=== PATIENT | female | born 1940 | race Caucasian/White ===

== ENCOUNTER 2019-06-20 10:43 | Inpatient (IN) ==
[2019-06-20] MEDS ORDERED: 0.9 % SODIUM CHLORIDE 500 ML IV ONE (11:44)
--- NOTE | 2019-06-20 11:48 | Emergency Department Note ---
Fall HPI - General Chief Complaint: Fall Stated Complaint: Frequent falls Time Seen by Provider: 06/20/19 11:12 Source: patient, family Mode of arrival: wheelchair - History of Present Illness HPI Narrative: 79-year-old female patient presents the emergency department once again, this time with chief complaint of frequent falls and worsening left-sided pelvic pain. Patient tells me she was up this morning trying to let her dog back in the home when she tripped over a footstool. She landed on the carpeted floor on her left side. This caused worsening left hip pain. Patient was just evaluated in our emergency department yesterday by a colleague for generalized weakness, shortness of breath, and swallowing issues. She had considerable work-up done yesterday that included a CBC that was within normal limits. CMP that showed mildly decreased sodium 132 glucose 198. D-dimer is elevated 1.36. Lactic acid, troponin, and procalcitonin were all normal. Chest x-ray showed possible bibasilar infiltrates. Head CT scan was performed that showed no acute findings. A review of her note from yesterday does indicate that the patient is expressed a desire to go to a longterm for care. She mentions living at home alone and is not able to care for self. In the end of the visit she was diagnosed with UTI and was supposed to start treatment with ciprofloxacin. This was not started. Today, patient admits to occasional fever, sweats, chills. Patient admits to de creased vision in left eye and resulting in diplopia over the last 1-2 weeks. She denies headache. She denies sinus congestion or runny nose. She admits to ongoing dysphasia and is only able to take in milk related products. She admits to baseline shortness of breath that has not worsened. She denies retrosternal chest pain or palpitations. She denies abdominal pain, nausea, vomiting, or joya rrhea. She admits to generalized malaise but denies focal weakness. She denies dysuria or hematuria. A review of her active problems shows the following: Pelvic hematoma, achalasia, trouble talking, UTI, conjunctivitis, long-term use of opiate analgesic, type 2 diabetes, mitral regurgitation, pelvic fracture, influenza, osteoarthritis, overactive bladder, anxiety, osteoporosis, hypothyroidism, depression, back pain, allergic rhinitis. - Related Data Home Medications Medication Instructions Recorded Confirmed aspirin 81 mg tablet,delayed 81 mg PO QDAY tab 12/03/14 11/14/16 release beclomethasone diprop (AQ) 42 mcg 42 mcg INTRANASAL BID PRN g 12/03/14 11/14/16 (0.042 %) nasal spray calcium carbonate 200 mg calcium 400 mg PO QDAY tab 12/03/14 11/14/16 (500 mg) chewable tablet cholecalciferol (vitamin D3) 25 2,000 unit PO QDAY cap 12/03/14 11/14/16 mcg (1,000 unit) capsule conjugated estrogens 0.625 mg/gram 1 g VAGINAL QDAY PRN g 12/03/14 11/14/16 vaginal cream [id number]-ginctsze-jujmdk 1 tab PO QDAY tab 12/03/14 11/14/16 vitamin E 200 unit capsule 400 unit PO QDAY cap 12/03/14 11/14/16 metronidazole 500 mg tablet 500 mg PO TID 10 Days #30 tab 06/14/16 11/14/16 Previous Rx's Medication Instructions Recorded insulin syringe-needle U-100 0.3 See Dose Instructions .ROUTE 01/13/16 mL 30 gauge x 1/2" .MEDSUPPLY #300 each Prevnar 13 (PF) 0.5 mL 0.5 ml IM ONCE #0.5 ml NS 03/14/16 intramuscular syringe OneTouch Ultra Test See Dose Instructions .ROUTE 06/14/16 .MEDSUPPLY #300 each NS OneTouch Delica Lancets 33 gauge See Dose Instructions .ROUTE 07/09/16 .MEDSUPPLY #200 each NS calcitonin (salmon) 200 1 spray INTRANASAL QDAY #3.7 ml 07/24/16 unit/actuation nasal spray sertraline 100 mg tablet 100 mg PO QDAY 90 Days #90 tab 07/31/16 levothyroxine 200 mcg tablet 200 mcg PO QDAY 90 Days #90 tab 08/06/16 lorazepam 1 mg tablet See Rx Instructions .ROUTE 09/06/16 .COMPLEX #120 tab c-testosterone 20 mg/gm See Dose Instructions TRANSDERMA 09/19/16 .COMPLEX #30 g etodolac 400 mg tablet 400 mg PO BID #28 tab 11/14/16 Humalog U-100 Insulin 100 unit/mL See Dose Instructions .ROUTE 12/04/16 subcutaneous solution .COMPLEX #10 ml NS Lantus U-100 Insulin 100 unit/mL See Dose Instructions .ROUTE 12/04/16 subcutaneous solution .COMPLEX #10 ml NS fentanyl 50 mcg/hr transdermal 1 patch TRANSDERMA Q72H #10 patch 03/06/17 patch lisinopril 5 mg tablet 2.5 mg PO QDAY #30 tab 03/11/17 oxyCODONE HCL [Oxycodone HCl] 5 mg PO Q4HP PRN #18 tab 04/26/19 Ciprofloxacin [Cipro] 500 mg PO BID #14 tab 06/19/19 Allergies Allergy/AdvReac Type Severity Reaction Status Date / Time tramadol AdvReac Intermediate hypoglycemi Verified 06/20/19 10:44 a Review of Systems All systems ED: reviewed and negative except as stated. Fall PMH - Past Medical History Medical history: Reports: DM, osteoporosis, thyroid disease, valvular heart disease. Denies: PUD Psychiatric history: Reports: depression - Social History smoking status: Never smoker Physical Exam Limitations: no limitations General appearance: alert, in no apparent distress (No apparent respiratory distress.), malaise, sleepy, other (Well-developed, frail and chronically ill- appearing 79-year-old female patient sitting upright in the emergency room rney appearing sleepy but answering all my questions.) Head: atraumatic, normocephalic Eye: Present: normal appearance, PERRL, EOMI. Absent: scleral icterus, conjunctival injection, nystagmus ENT: Present: normal oropharynx, mucous membranes dry Neck: Present: normal inspection, full ROM, trachea midline. Absent: lymphadenopathy Chest: Present: normal inspection, symmetric chest wall rise. Absent: rash Respiratory: Present: decreased breath sounds (Decreased breath sounds at the bases bilateral). Absent: respiratory distress, rales/crackles, wheezes, stridor, accessory muscle use, prolonged expiratory phase Cardiovascular: Present: regular rate, normal rhythm. Absent: systolic murmur, diastolic murmur Abdominal: Present: soft. Absent: distention, tenderness, guarding, rebound, rigidity, organomegaly, mass Extremities: Present: normal inspection, full ROM, tenderness (Left hip.). Absent: normal capillary refill (Less than 3 seconds), pedal edema, cyanosis Neurological: Present: alert, oriented X3, reflexes normal. Absent: normal gait, motor sensory deficit Psychiatric: Present: normal affect, depressed Skin: Present: warm, dry, normal color Course Course Narrative: Patient was brought into the emergency department and a history and physical exam was performed. Patient is undergone extensive testing yesterday. I did repeat the chemistry panel, UA, and ordered images of her left hip/pelvis. pelvic x-ray showing a comminuted, minimally displaced fracture of the left p ubic symphysis and left pubic ramus junction. This is a worsening from a hairline fracture that was present. Portable chest x-ray showing moderate interstitial disease throughout both lungs. Radiologist mentions likely indicates viral or mycoplasma pneumonia. He does mention edema from possible CHF should also be considered. With this in mind additional laboratory studies were ordered. A review of her laboratory studies show the following: CBC within normal limits. CMP glucose 181, alkaline phosphatase 195, all others normal limits. proBNP 383.2. After reviewing all the data discussed these findings with the patient and her family. She has worsening fracture to his pelvis and developing interstitial lung disease. With this in mind, I reached out to the orthopedic surgeon on-call (Dr. Baeza) requesting guidance about the pelvic fracture. At this time orthopedic surgeon assured me that the fracture, at its current place, is not surgical. She should be able to move around and it will take time to heal. However, patient has not been ambulatory and is complaining of significant pain. Her fentanyl patch was removed and the patient was given Dilaudid 0.5 mg IVP. In attempt to control her pain and to stabilize her medically I reached out to the hospitalist (Dr. Lewis) for possible admission. After reviewing the patient's chart the hospitalist did mention that she does not meet considerable inpatient criteria. However, patient would likely warrant an observation admission for pain control and further evaluation. At this time [facility] All further treatment decisions and modalities will be carried out by the hospitalist. Patient is remained stable throughout her entire time the emergency department and is being admitted to observation as mentioned. Vital Signs Temperature 97.7 F 06/20/19 10:44 Pulse Rate 95 H 06/20/19 10:44 Respiratory Rate 15 06/20/19 10:44 Blood Pressure 129/81 06/20/19 10:44 Pulse Oximetry (%) 99 06/20/19 10:44 Temperature 97.7 F 06/20/19 10:44 Pulse Rate 85 06/20/19 15:02 Respiratory Rate 15 06/20/19 15:02 Blood Pressure 108/94 06/20/19 15:02 Pulse Oximetry (%) 95 06/20/19 15:02 Fall - Lab Data Lab results reviewed: Yes I reviewed the patient's lab results. Result diagrams: 06/20/19 12:10 06/20/19 12:10 Lab Results 06/20/19 06/20/19 06/20/19 Range/Units 12:10 12:10 12:10 WBC 5.9 (4.50-11.00) K/mcL RBC 4.29 (3.59-5.38) M/mcL Hgb 12.7 (11.2-15.7) g/dL Hct 39.8 (34.1-44.9) % POC Hct 39.0 (36.0-48.0) % MCV 92.8 (80.0-100.0) fL MCH 29.6 (26.0-34.0) pg MCHC 31.9 (31.0-36.0) g/dL RDW 12.9 (11.5-14.5) % Plt Count 253 (140-440) K/mcL MPV 10.6 H (7.4-10.4) fL Gran % 66.4 (38.0-78.0) % Lymph % (Auto) 22.7 (15.5-49.0) % [place] % (Auto) 9.7 (1.0-12.0) % Eos % (Auto) 0.7 (0.0-7.0) % Baso % (Auto) 0.5 (0.0-2.0) % Gran # 3.88 (1.80-8.00) K/mcL Lymph # (Auto) 1.33 L (1.50-4.80) K/mcL [place] # (Auto) 0.57 (0.10-0.90) K/mcL Eos # (Auto) 0.04 (0.00-0.70) K/mcL Baso # (Auto) 0.03 (0.00-0.30) K/mcL POC Sodium 137 (133-145) mmol/L Sodium 136 (133-145) mmol/L POC Potassium 4.0 (3.3-5.1) mmol/L Potassium 4.0 (3.3-5.1) mmol/L POC Chloride 103 (96-108) mmol/L Chloride 99 (96-108) mmol/L Carbon Dioxide 23 (22-30) mmol/L POC Total CO2 26 (22-30) mmol/L Anion Gap 14.0 (8-16) POC BUN 19 (8-23) mg/dl BUN 18 (8-23) mg/dl Creatinine 0.6 (0.6-1.1) mg/dl POC Creatinine 0.5 L (0.6-1.1) mg/dl GFR Calculation 87 Glucose 181 H (70-105) mg/dL POC Glucose 177 H (70-105) mg/dL Calcium 9.0 (8.6-10.4) mg/dl POC WB Ioniz Calcium 1.12 L (1.16-1.32) mmol/L Total Bilirubin 0.3 (0.0-1.0) mg/dL AST 23 (0-37) U/l ALT 20 (0-40) U/l Alkaline Phosphatase 195 H (39-117) U/L NT-Pro-B Natriuret Pep 383.2 (0-450) pg/ml Total Protein 7.1 (5.9-8.4) gm/dL Albumin 3.8 (3.2-5.2) gm/dL Globulin 3.3 (2.2-3.7) gm/dL Albumin/Globulin Ratio 1.2 (1.0-2.3) - Radiology Data Radiology results reviewed: Yes I reviewed the patient's radiology results. Ordering Physician: Brock Tavarez PA-C Date of Service: 06/20/19 Procedure(s): XR hips BI 2V w/AP pelvis Accession Number(s): [id number] IMPRESSION: Comminuted, minimally displaced fracture through the left pubic symphysis and left pubic ramus junction. There was a hairline fracture seen in this area on the plain films approximately two months prior but this has progressed. Ordering Physician: Brock Tavarez PA-C Date of Service: 06/20/19 Procedure(s): XR chest 1V portable Accession Number(s): [id number] IMPRESSION: Moderate interstitial disease throughout both lungs. Diffuse setting, this often indicates viral or mycoplasma pneumonia. Edema from possible CHF should also be considered Interpreted and Authenticated by: Naresh García 06/20/19 Disposition Pt seen by [facility]AN[facility] STRINGER/PA only: Yes Clinical Impression: Interstitial lung disease, Inadequate pain control, Adult failure to thrive Pelvic fracture Qualifiers: Encounter type: initial encounter Pelvic bone location: other part of pelvis Fracture type: closed Qualified Code(s): S32.89XA - Fracture of other parts of pelvis, initial encounter for closed fracture Disposition: Xfer As Outpt/Obs ([facility]) Condition: Serious Additional Instructions: Patient is going to be admitted under observation, under the care of the hospitalist (Dr. Lewis). All further treatment decisions and modalities to be carried out by the hospitalist. Referrals: Osbaldo Aguilar MD [Primary Care Provider] - Time of Disposition: 15:36
[2019-06-20 12:21] LABS: POC Blood Urea Nitrogen 19 mg/dl (8-23); POC CO2 26 mmol/L (22-30); POC Calcium, Ionized 1.12 mmol/L (1.16-1.32); POC Chloride 103 mmol/L (96-108); POC Creatinine 0.5 mg/dl (0.6-1.1); POC Glucose, Random 177 mg/dL (70-105); POC Sodium 137 mmol/L (133-145)
--- NOTE | 2019-06-20 12:51 | XRay Report ---
CLINICAL INFORMATION: 79 y/o F. weakness. bibasilar infiltrates seen COMPARISON: 06/19/2019 FINDINGS: Heart is mildly enlarged. Mediastinum and pulmonary vessels are normal. There is a mild interstitial disease throughout both lungs. No effusions IMPRESSION: Moderate interstitial disease throughout both lungs. Diffuse setting, this often indicates viral or mycoplasma pneumonia. Edema from possible CHF should also be considered Interpreted and Authenticated by: Naresh García 06/20/19
--- NOTE | 2019-06-20 12:53 | XRay Report ---
CLINICAL INFORMATION: 79 y/o F. Fell today. worsening left hip pain. COMPARISON: 04/26/2019 FINDINGS: Comminuted fracture through the left pubic symphysis extending to the left superior pubic ramus junction appreciated. No other fractures. Mild degenerative changes both SI and hip joints. Soft tissue swelling over the fracture site IMPRESSION: Comminuted, minimally displaced fracture through the left pubic symphysis and left pubic ramus junction. There was a hairline fracture seen in this area on the plain films approximately two months prior but this has progressed. Interpreted and Authenticated by: Naresh García 06/20/19
[2019-06-20] MEDS: HYDROmorphone 2 MG/ML VIAL IV ONE ×2 (13:40→14:16)
[2019-06-20 13:55] LABS: Basophils # (Auto) 0.03 K/mcL (0.00-0.30); Basophils % (Auto) 0.5 % (0.0-2.0); Eosinophils # (Auto) 0.04 K/mcL (0.00-0.70); Eosinophils % (Auto) 0.7 % (0.0-7.0); Granulocytes % (Auto) 66.4 % (38.0-78.0); Hematocrit 39.8 % (34.1-44.9); Hemoglobin 12.7 g/dL (11.2-15.7); Lymphocytes # (Auto) 1.33 K/mcL (1.50-4.80); Lymphocytes % (Auto) 22.7 % (15.5-49.0); Mean Cell Volume 92.8 fL (80.0-100.0); Mean Corpuscular HGB Conc 31.9 g/dL (31.0-36.0); Mean Platelet Volume 10.6 fL (7.4-10.4); Monocytes # (Auto) 0.57 K/mcL (0.10-0.90); Monocytes % (Auto) 9.7 % (1.0-12.0); Platelet Count 253 K/mcL (140-440); RBC 4.29 M/mcL (3.59-5.38); Red Cell Distribution Width 12.9 % (11.5-14.5); WBC 5.9 K/mcL (4.50-11.00)
[2019-06-20 14:03] LABS: proBNP 383.2 pg/ml (0-450)
[2019-06-20 14:05] LABS: ALT/SGPT 20 U/l (0-40); AST/SGOT 23 U/l (0-37); Albumin 3.8 gm/dL (3.2-5.2); Albumin/Globulin Ratio 1.2 (1.0-2.3); Alkaline Phosphatase 195 U/L (39-117); Bilirubin,Total 0.3 mg/dL (0.0-1.0); Blood Urea Nitrogen 18 mg/dl (8-23); Carbon Dioxide 23 mmol/L (22-30); Chloride 99 mmol/L (96-108); Globulin 3.3 gm/dL (2.2-3.7); Glomerular Filtration Rate 87; Glucose 181 mg/dL (70-105)
--- NOTE | 2019-06-20 15:07 | Internal Med History&Physical ---
Medical - H&P: HPI Patient information: Note initiated : 06/20/19 at 3:03 pm Service Date, if different from initiated Date: [] Patient: Elisha Alfaro 79 y/o F admitted on for Frequent falls. Chief Complaint: [] History of present illness: Ms. Alfaro is a 79 year old F Presents the ED with generalized weakness falling pelvic pain. Patient has been seen in the ED multiple times since being diagnosed with a pelvic fracture. 04/26 she presented with pelvic hip pain with no obvious trauma was found to have a hairline fracture of the left pubic ramus 05/06 presented back for some pain and noted had a hematoma at the fracture site 05/16 presented back for fall weakness and was found to have influenza 06/14 presented with swallowing difficulty and was evaluated for stroke which was negative work-up. Barium swallow which had some positive findings and she was scheduled to have a follow-up barium swallow with speech therapy this coming week. 06/19 presented for weakness swallowing issues and diagnosed with UTI Now presents today again because of weakness and she fell again this morning. She is does not feel safe at home family is concerned with her as well feel she needs to be in a rehab facility. She is afebrile laboratories unremarkable. This x-ray shows some interstitial findings, I suspect this to be related to probably a pneumonitis from aspiration, she has no respiratory symptoms otherwise and does not appear to have pneumonia. Regarding her swallowing she says is been going on for couple several weeks and the it is most noticeable solids she is mostly able to tolerate a liquid diet although occasionally will show cough up water through her nose. She tolerated a boost drink this morning and coffee. She also reports that she feels like food gets stuck in her throat after she initiates a swallow. She denies any pyrosis. She denies any coughing other than when she is having the coughing from swallowing food or when she is trying to clear her throat of phlegm. Chest pain fevers or chills, denying shortness of breath. Review of Systems: Pertinent positives as above. Denies heada tarah/fever/chills/nausea/vomiting/chest or abdominal pain/diarrhea. Many 10 point review of system reviewed negative Medical - H&P: PM Medical history: Medical History (Last Updated 04/29/19 @ 00:00 by Pierre Pfeiffer DO) Long-term current use of opiate analgesic (Chronic) Type 2 diabetes mellitus (Chronic) Mitral regurgitation (Chronic) Osteoarthritis (Chronic) Overactive bladder (Chronic) Aortic valve insufficiency (Chronic) Urinary Incontinence (Chronic) Anxiety (Chronic) Osteoporosis (Chronic) Hypothyroid (Chronic) Depression (Chronic) Back pain with radiation (Chronic) Aortic valve insufficiency (Chronic) Allergic rhinitis (Chronic) Chest pain (Resolved) Clostridium difficile infection (Resolved) Dysuria (Resolved) E-coli UTI (Resolved) Encounter for Health Maintenance Examination in Adult (Resolved) Localized pain (Resolved) Postmenopausal bleeding (Resolved) Rupture of tendon of thumb (Resolved) Scarlet fever (Resolved) Shingles (Resolved) Skin lesion (Resolved) Urge incontinence of urine (Resolved) Urinary tract infection (Resolved) Past Surgical History (Last Updated 04/27/19 @ 08:03 by Pierre Pfeiffer DO) H/O dilation and curettage (Chronic) Hx of colonoscopy (Chronic 07/12/09) S/P epidural steroid injection (Resolved) Family History (Last Updated 04/20/19 @ 14:17 by Jessi Puente) Brother Family history of coronary artery bypass surgery Status post heart and lung transplant Heart disease Mother Family history of malignant neoplasm of esophagus Throat cancer uncle Pancreatic neoplasm Father Hypertension Social History (Last Updated 04/20/19 @ 14:17 by Jessi Puente) Denies tobacco Drinks 1 glass of wine a night Ambulates with walker Lives by herself Medical - H&P: Meds Home Medications Medication Instructions Recorded Confirmed Type aspirin 81 mg tablet,delayed 81 mg PO QDAY tab 12/03/14 11/14/16 History release beclomethasone diprop (AQ) 42 mcg 42 mcg INTRANASAL BID PRN g 12/03/14 11/14/16 History (0.042 %) nasal spray calcium carbonate 200 mg calcium 400 mg PO QDAY tab 12/03/14 11/14/16 History (500 mg) chewable tablet cholecalciferol (vitamin D3) 25 2,000 unit PO QDAY cap 12/03/14 11/14/16 History mcg (1,000 unit) capsule conjugated estrogens 0.625 mg/gram 1 g VAGINAL QDAY PRN g 12/03/14 11/14/16 H istory vaginal cream lfqnnoqjxegl-zdiocpja-nheewg 1 tab PO QDAY tab 12/03/14 11/14/16 History vitamin E 200 unit capsule 400 unit PO QDAY cap 12/03/14 11/14/16 History insulin syringe-needle U-100 0.3 See Dose Instructions .ROUTE 01/13/16 11/14/16 Rx mL 30 gauge x 1/2" .MEDSUPPLY #300 each Prevnar 13 (PF) 0.5 mL 0.5 ml IM ONCE #0.5 ml NS 03/14/16 11/14/16 Rx intramuscular syringe OneTouch Ultra Test See Dose Instructions .ROUTE 06/14/16 11/14/16 Rx .MEDSUPPLY #300 each NS metronidazole 500 mg tablet 500 mg PO TID 10 Days #30 tab 06/14/16 11/14/16 History OneTouch Delica Lancets 33 gauge See Dose Instructions .ROUTE 07/09/16 11/14/16 Rx .MEDSUPPLY #200 each NS calcitonin (salmon) 200 1 spray INTRANASAL QDAY #3.7 ml 07/24/16 11/14/16 Rx unit/actuation nasal spray sertraline 100 mg tablet 100 mg PO QDAY 90 Days #90 tab 07/31/16 11/14/16 Rx levothyroxine 200 mcg tablet 200 mcg PO QDAY 90 Days #90 tab 08/06/16 11/14/16 Rx lorazepam 1 mg tablet See Rx Instructions .ROUTE 09/06/16 11/14/16 Rx .COMPLEX #120 tab c-testosterone 20 mg/gm See Dose Instructions TRANSDERMA 09/19/16 11/14/16 Rx .COMPLEX #30 g etodolac 400 mg tablet 400 mg PO BID #28 tab 11/14/16 11/14/16 Rx Humalog U-100 Insulin 100 unit/mL See Dose Instructions .ROUTE 12/04/16 Rx subcutaneous solution .COMPLEX #10 ml NS Lantus U-100 Insulin 100 unit/mL See Dose Instructions .ROUTE 12/04/16 Rx subcutaneous solution .COMPLEX #10 ml NS fentanyl 50 mcg/hr transdermal 1 patch TRANSDERMA Q72H #10 patch 03/06/17 Rx patch lisinopril 5 mg tablet 2.5 mg PO QDAY #30 tab 03/11/17 Rx oxyCODONE HCL [Oxycodone HCl] 5 mg PO Q4HP PRN #18 tab 04/26/19 Rx Ciprofloxacin [Cipro] 500 mg PO BID #14 tab 06/19/19 Rx Allergies Allergy/AdvReac Type Severity Reaction Status Date / Time tramadol AdvReac Intermediate hypoglycemi Verified 06/20/19 10:44 a Medical - H&P: Exam - Constitutional Vitals: Temp Pulse Resp BP Pulse Ox 97.7 F 89 18 133/73 95 06/20/19 10:44 06/20/19 14:05 06/20/19 14:05 06/20/19 14:05 06/20/19 14:05 Exam: General: Alert, Awake, No acute Distress Eyes/N/T: EOMI, PERRL, right eyelid droopy Head/Neck: neck supple, normocephalic atraumatic CV: RRR, No murmurs, normal s1/s2 Pulm: Clear b/l, no wheezing/rhonchi/rales Abd: soft, nontender, +BS x4 Ext: no clubbing/cyanosis/edema Neuro: Alert, moves all extremities, symmetrical strength b/l upper/lower, sensations intact b/l upper/lower Skin: warm/dry Medical - H&P: Reslt - Labs CBC & Chem 7: 06/20/19 12:10 06/20/19 12:10 Labs: Short CBC 06/20/19 Range/Units 12:10 WBC 5.9 (4.50-11.00) K/mcL Hgb 12.7 (11.2-15.7) g/dL Hct 39.8 (34.1-44.9) % Plt Count 253 (140-440) K/mcL BMP 06/20/19 12:10 Sodium 136 Potassium 4.0 Chloride 99 Carbon Dioxide 23 BUN 18 Creatinine 0.6 Glucose 181 H Calcium 9.0 Liver Function 06/20/19 Range/Units 12:10 Total Bilirubin 0.3 (0.0-1.0) mg/dL AST 23 (0-37) U/l ALT 20 (0-40) U/l Alkaline Phosphatase 195 H (39-117) U/L Albumin 3.8 (3.2-5.2) gm/dL Medical - H&P: A/P - Narrative A/P Narrative: A: *Generalized weakness/falls/debility: *Recent pelvic fracture: *Dysphagia: Solids more than liquids, reports symptoms consistent with both oral pharyngeal and esophageal *UTI recent diagnosis: *Suspected pneumonitis from likely aspiration given CXR findings and history: *DM: *HTN: *Anxiety/depression: *Hypothyroidism: * P: -Pt/ot -prn pain control -liquid diet -ST for barium swallow -f/u with PCP/GI regarding continued w/u of dysphagia -ppi -rocephin -SSI and basal -cont home BP/Anxiety meds -ppx: lovenox DNR
[2019-06-20] MEDS ORDERED: SENNOSIDES 1 TABLET PO PRN (15:25)
[2019-06-20] MEDS ORDERED: ONDANSETRON 4 MG/2 ML VIAL IV PRN (15:25)
[2019-06-20] MEDS ORDERED: POLYETHYLENE GLYCOL 3350 17 GM PACKET PO PRN (15:25)
[2019-06-20] MEDS ORDERED: HYDROcodone/APAP 5/325MG TABLET PO PRN (15:25)
[2019-06-20] MEDS ORDERED: MAGNESIUM SULFATE 2 GM/50 ML BAG IV PRN (15:25)
[2019-06-20] MEDS ORDERED: POTASSIUM CHLORIDE 40 MEQ in DEXTROSE 5% IN WATER 500 ML IV PRN (15:25)
[2019-06-20] MEDS ORDERED: DEXTROSE 31 GM ORAL.SUSP PO PRN (15:25)
[2019-06-20] MEDS ORDERED: POTASSIUM CHLORIDE 20 MEQ TABLET PO PRN ×2 (15:25)
[2019-06-20] MEDS ORDERED: IPRATROPIUM/ALBUTEROL 3 ML AMPUL.NEB NEB PRN (15:25)
[2019-06-20] MEDS ORDERED: cefTRIAXone 1 GM in DEXTROSE 5% IN WATER 50 ML IV SCH (15:25)
[2019-06-20] MEDS ORDERED: DEXTROSE 50% 50 ML VIAL IV PRN (15:25)
[2019-06-20] MEDS: 0.9 % SODIUM CHLORIDE 1,000 ML IV SCH (16:48)
[2019-06-20] MEDS: cefTRIAXone 1 GM VIAL IV SCH (17:13)
[2019-06-20] MEDS ORDERED: INSULIN GLARGINE, HUMAN 1 UNIT/0.01 ML SQ SCH (17:15)
[2019-06-20] MEDS ORDERED: LORazepam (PP) 1 MG TABLET (#4) PO SCH (17:15)
[2019-06-20] MEDS: INSULIN LISPRO 1 UNIT/0.01 ML UNIT SQ SCH ×2 (17:15→22:22)
[2019-06-20 18:22] LABS: Appearance,Urine CLEAR; Bilirubin,Urine NEG (NEG); Color,Urine YELLOW; Culture Indicated,Urine NO; Glucose,Urine (UA) NEGATIVE (NEG); Ketones,Urine 5/TR mg/dL (NEG); Leukocyte Esterase,Urine NEG /uL (NEG); Nitrate,Urine NEG (NEG); Protein,Urine NEG (NEG); Specific Gravity,Urine 1.015 (1.000-1.035); Urine Blood NEG mg/dL (<0.03); Urobilinogen,Urine NEG (NEG)
[2019-06-20] MEDS ORDERED: ENALAPRILAT 1.25 MG/ML VIAL IV PRN (20:08)
[2019-06-20] MEDS ORDERED: LORazepam 1 MG TABLET PO PRN (21:00)
[2019-06-20] MEDS ORDERED: DOCUSATE SODIUM 100 MG CAPSULE PO SCH (21:00)
[2019-06-20] MEDS: 0.9 % SODIUM CHLORIDE 10 ML SYRINGE IV SCH (22:22)
[2019-06-20] MEDS: ACETAMINOPHEN 650 MG/65 ML BOTTLE IV PRN (23:23)
[2019-06-21] MEDS: 0.9 % SODIUM CHLORIDE 1,000 ML IV SCH ×3 (05:53→10:03)
[2019-06-21] MEDS: 0.9 % SODIUM CHLORIDE 10 ML SYRINGE IV SCH ×3 (05:53→21:38)
[2019-06-21] MEDS: PANTOPRAZOLE 40 MG VIAL IV SCH (07:36)
--- NOTE | 2019-06-21 07:55 | Cat Scan Report ---
CLINICAL INFORMATION: Aspiration COMPARISON: Chest CT 12/21/2011 TECHNIQUE: 0.625 mm axial slices were obtained from the lung apices through the bases without intravenous contrast. 2.5 mm Sagittal, coronal and axial reformatted images were processed and reviewed at bone, lung and soft tissue windows. 7 mm axial MIP images were also reconstructed to optimize pulmonary nodule detection.The exam was performed using radiation dose optimization techniques including, but not limited to, automated exposure control, adjustment of the mA and/or kV according to patient size and use of iterative reconstruction technique. FINDINGS: Pulmonary parenchymal windows again show a focus of pleural parenchymal fibrosis with entrapped dilated subsegmental bronchi in the posterior left lung apex. It is increased in overall dimension from 16 to 19 mm since the remote study over seven years ago. Suspect a region of cicitration atelectasis which has undergone progressive fibrosis and/or superimposed infection. It does not have the configuration of malignancy. A 9 mm density in the posterior right lung apex on image 35 appears to represent inflammation or fibrosis surrounding a a dilated subsegmental bronchi segment. There is moderate patchy groundglass airspace disease in the inferior right middle and both lower lobes which is new. There is also moderate aspirate noted within the lumen of the right lower and middle lobe bronchi thus airspace disease likely represents aspiration pneumonia. A band of pleural parenchymal fibrosis has developed along the posterior medial right lower lobe. This was not seen on the remote study. A small right pleural effusion is noted Mediastinal windows show a feeding tube with the tip in the gastric body. The heart is borderline enlarged with small amount of calcific plaque within the left main and proximal LAD coronary arteries. The noncontrast thoracic aorta and pulmonary arteries are normal diameter. There are no abnormally enlarged lymph nodes in mediastinal hilar or axillary regions. Thyroid is grossly normal. Bone windows show severe dextroscoliosis curve of the lower thoracic and upper lumbar spine which has worsened considerably from 2012. No focal osseous lesions. IMPRESSION: 1. Moderate patchy groundglass infiltrates in the inferior right middle and both lower lobes. There is aspirate noted within the right lower lobe and right middle lobe bronchi lumen. Findings compatible with aspiration pneumonia. Small right pleural effusion is noted. There is also a band of subpleural fibrosis in the posterior medial right lower lobe region. 2. 19 mm focus of cicitration bronchiectasis and fibrosis in the posterior left lung apex. It is slightly larger than the remote study seven years prior suspect either progressing fibrosis or superimposed pneumonia. 3. Severe dextroscoliosis of lower thoracic and upper lumbar spine which has worsened considerably since the remote CT seven years ago Interpreted and Authenticated by: Naresh García 06/21/19
--- NOTE | 2019-06-21 08:19 | Internal Med Progress Note ---
Medical - PN: Subj Patient information: Note initiated : 06/21/19 at 8:13 am Service Date, if different from initiated Date: [] Patient: Elisha Alfaro 79 y/o F admitted on 06/20/19 for Frequent falls. Chief Complaint: [] Interval history: Ms. Alfaro is a 79 year old F Presents the ED with generalized weakness falling pelvic pain. Patient has been seen in the ED multiple times since being diagnosed with a pelvic fracture. 04/26 she presented with pelvic hip pain with no obvious trauma was found to have a hairline fracture of the left pubic ramus 05/06 presented back for some pain and noted had a hematoma at the fracture site 05/16 presented back for fall weakness and was found to have influenza 06/14 presented with swallowing difficulty and was evaluated for stroke which was negative work-up. Barium swallow which had some positive findings and she was scheduled to have a follow-up barium swallow with speech therapy this coming week. 06/19 presented for weakness swallowing issues and diagnosed with UTI Now presents today again because of weakness and she fell again this morning. She is does not feel safe at home family is concerned with her as well feel she needs to be in a rehab facility. She is afebrile laboratories unremarkable. This x-ray shows some interstitial findings, I suspect this to be related to probably a pneumonitis from aspiration, she has no respiratory symptoms otherwise and does not appear to have pneumonia. Regarding her swallowing she says is been going on for couple several weeks and the it is most noticeable solids she is mostly able to tolerate a liquid diet although occasionally will show cough up water through her nose. She tolerated a boost drink this morning and coffee. She also reports that she feels like food gets stuck in her throat after she initiates a swallow. She denies any pyrosis. She denies any coughing other than when she is having the coughing from swallowing food or when she is trying to clear her throat of phlegm. Chest pain fevers or chills, denying shortness of breath. 06/21 Seemed to have some aspiration with the number of pills last night and seemed more hoarse after the event better this morning. NG tube last night. Do bedsid e swallow eval and see how she does with mildly thickened liquids as she was doing well with nutritional shakes before. Speech therapy to see tomorrow. She has a weak cough and an occasional cough mostly to try to cough up phlegm. She has some shortness of breath that is improved from yesterday. Review of Systems: denies headache/fever/chills/nausea/vomiting/chest or abdominal pain/diarrhea. Otherwise see above. - Constitutional Vitals: Vital Signs Temp Pulse Resp BP Pulse Ox 98.1 F 77 18 121/64 97 06/21/19 08:00 06/21/19 08:00 06/21/19 08:00 06/21/19 08:00 06/21/19 08:00 Period Temp Pulse Resp BP Sys/Schumacher Pulse Ox Last 24 Hr 97.7 F-98.9 F 75-102 13-22 105-161/62-94 92-99 Intake and Output 06/20/19 06/21/19 06/21/19 21:59 05:59 13:59 Intake Total 0 305 Output Total 452 302 Balance -452 3 Weight 48.081 kg Intake & Output: Intake & Output 06/20/19 06/21/19 06/21/19 21:59 05:59 13:59 Intake Total 0 305 Output Total 452 302 Balance -452 3 Weight 48.081 kg Intake: IV 65 Oral 0 240 Output: Void Amount 450 300 # of times incontinent of urine 2 2 Other: Urine Appearance Clear Clear Urine Color Bright Yellow Bright Yellow Urine Odor Foul Stool Size Moderate Stool Color Brown Stool Consistency Loose # Bowel Movements 1 Exam: General: Alert, Awake, No acute Distress Eyes/N/T: EOMI, Head/Neck: neck supple, CV: RRR, No murmurs, Pulm: diminished bases R>L, no wheezing/rhonchi/rales Abd: soft, nontender, +BS x4 Ext: no clubbing/cyanosis/edema Neuro: Alert, moves all extremities, symmetrical strength b/l upper/lower, sensations intact b/l upper/lower Skin: warm/dry Medical - PN: Obj Da - Labs CBC & Chem 7: 06/20/19 12:10 06/20/19 12:10 Labs: Abnormal Lab Results 06/20/19 06/20/19 06/20/19 17:32 12:10 12:10 MPV 10.6 H Lymph # (Auto) 1.33 L POC Creatinine Glucose 181 H POC Glucose POC WB Ioniz Calcium Alkaline Phosphatase 195 H Urine Ketones 5/tr A 06/20/19 12:10 MPV Lymph # (Auto) POC Creatinine 0.5 L Glucose POC Glucose 177 H POC WB Ioniz Calcium 1.12 L Alkaline Phosphatase Urine Ketones Meds: Medications Albuterol/Ipratropium (Duoneb) 3 ml NEB Q4HP PRN PRN Reason: Shortness Of Breath Last Admin: 06/21/19 03:21 Dose: 3 ml Documented by: Aspirin (Aspirin) 81 mg PO DAILY [facility] Ceftriaxone Sodium (Rocephin) 1 gm IV DAILY [facility] Last Admin: 06/20/19 17:13 Dose: 1 gm Documented by: Dextrose (Dextrose 50%) 0 ml IV UD PRN PRN Reason: Hypoglycemia Diagnostic Test (Pha) (Accu-Chek) 1 each FS ACHS [facility] Last Admin: 06/21/19 07:36 Dose: 1 each Documented by: Enalaprilat (Vasotec) 0 mg IV Q2HP PRN PRN Reason: Hypertension Enoxaparin Sodium (Lovenox) 30 mg SQ DAILY [facility] Glucose (Insta-Glucose) 15 gm PO PRN PRN PRN Reason: Hypoglycemia Potassium Chloride 40 meq/ (Dextrose) 520 mls @ 130 mls/hr IV UD PRN PRN Reason: Potassium < 3 Magnesium Sulfate (Magnesium Sulfate) 2 gm in 50 mls @ 50 mls/hr IV UD PRN PRN Reason: Magnesium </= 1.6 Sodium Chloride (Sodium Chloride 0.9%) 1,000 mls @ 75 mls/hr IV .[id number] [facility] Last Admin: 06/21/19 05:53 Dose: Not Given Documented by: Acetaminophen (Ofirmev) 650 mg in 65 mls @ 130 mls/hr IV Q6HP PRN; Protocol PRN Reason: PAIN/FEVER > 101 Last Infusion: 06/21/19 00:14 Dose: Infused Documented by: Insulin Glargine (Lantus) 5 unit SQ DAILY [facility] Insulin Human Lispro (Humalog) 0 unit SQ ACHS [facility]; Protocol Last Admin: 06/20/19 22:22 Dose: Not Given Documented by: Levothyroxine Sodium (Synthroid) 200 mcg PO ACB [facility] Lorazepam (Ativan) 0.5 mg IV BIDP PRN PRN Reason: ANXIETY/SEDATION Morphine Sulfate (Morphine) 0 mg IV Q3HP PRN PRN Reason: Pain Last Admin: 06/21/19 03:38 Dose: 1 mg Documented by: Ondansetron HCl (Zofran) 4 mg IV Q4HP PRN PRN Reason: Nausea And Vomiting Pantoprazole Sodium (Protonix) 40 mg IV QAMAC [facility] Last Admin: 06/21/19 07:36 Dose: 40 mg Documented by: Polyethylene Glycol (Miralax) 17 gm PO DAILYP PRN PRN Reason: Constipation Sertraline HCl (Zoloft) 100 mg PO QDAY [facility] Sodium Chloride (Saline Flush) 10 ml IV Q8 [facility] Last Admin: 06/21/19 05:53 Dose: Not Given Documented by: Medical - PN: A/P - Time Spent With Patient Total time spent is greater than 50% in coordination of care (as documented) at patient's floor/unit and/or counseling patient: - Narrative A/P Narrative: A: *Generalized weakness/falls/debility: *Recent pelvic fracture: on 04/26 and likely reinjured it with the fall [employer]. *Dysphagia: -Barium swallow from [facility] (06/16/2019) reveals normal esophagus and her dysphagia was felt to be more oropharyngeal with swallow initiation, there was concern potential aspiration. Recommendation was for modified swallow eval with ST. *Aspiration w/pneumonitis vs developing PNA: *UTI recent diagnosis: repeat UA unremarkable, *DM: *HTN: *Anxiety/depression: *Hypothyroidism: * P: -IVF's -Pt/ot -bedside swallow urvashi -ST for modified barium swallow -f/u with PCP/GI regarding continued w/u of dysphagia -ppi -empiric abx for Aspiration, concern for PNA -SSI and basal -cont home BP/Anxiety meds -ppx: lovenox DNR Medical - PN: Qual - Stroke Symptom Onset Unknown: No - VTE Deep Vein Thrombosis/Pulmonary Embolism Present on Admission: No
[2019-06-21] MEDS: INSULIN LISPRO 1 UNIT/0.01 ML UNIT SQ SCH ×4 (08:34→22:00)
[2019-06-21] MEDS: cefTRIAXone 1 GM VIAL IV SCH (08:35)
[2019-06-21] MEDS: ENOXAPARIN 30 MG/0.3 ML SYRINGE SQ SCH (08:35)
[2019-06-21] MEDS ORDERED: 0.9 % SODIUM CHLORIDE 1,000 ML IV SCH (08:45)
[2019-06-21] MEDS ORDERED: INSULIN GLARGINE, HUMAN 1 UNIT/0.01 ML SQ SCH ×2 (09:00)
[2019-06-21] MEDS ORDERED: LISINOPRIL 5 MG TABLET PO SCH (09:00)
[2019-06-21] MEDS ORDERED: cefTRIAXone 1 GM VIAL IV ONE (09:46)
[2019-06-21] MEDS: ASPIRIN 81 MG TAB.CHEW PO SCH ×2 (09:51→10:02)
[2019-06-21] MEDS: LEVOTHYROXINE 100 MCG TABLET PO SCH (09:51)
[2019-06-21] MEDS: SERTRALINE 100 MG TABLET PO SCH (09:51)
[2019-06-21] MEDS: ACETAMINOPHEN 650 MG/65 ML BOTTLE IV PRN (09:57)
[2019-06-21 10:41] LABS: Basophils # (Auto) 0.02 K/mcL (0.00-0.30); Basophils % (Auto) 0.2 % (0.0-2.0); Eosinophils # (Auto) 0 K/mcL (0.00-0.70); Eosinophils % (Auto) 0 % (0.0-7.0); Granulocytes % (Auto) 88.1 % (38.0-78.0); Hematocrit 42.6 % (34.1-44.9); Hemoglobin 13.9 g/dL (11.2-15.7); Lymphocytes % (Auto) 7.1 % (15.5-49.0); Mean Cell Volume 91.2 fL (80.0-100.0); Mean Corpuscular HGB Conc 32.6 g/dL (31.0-36.0); Mean Platelet Volume 10.4 fL (7.4-10.4); Monocytes # (Auto) 0.58 K/mcL (0.10-0.90); Monocytes % (Auto) 4.6 % (1.0-12.0); Platelet Count 270 K/mcL (140-440); RBC 4.67 M/mcL (3.59-5.38); Red Cell Distribution Width 12.9 % (11.5-14.5); WBC 12.7 K/mcL (4.50-11.00)
[2019-06-21 10:58] LABS: ALT/SGPT 30 U/l (0-40); AST/SGOT 34 U/l (0-37); Albumin 3.8 gm/dL (3.2-5.2); Albumin/Globulin Ratio 1.1 (1.0-2.3); Alkaline Phosphatase 201 U/L (39-117); Bilirubin,Direct < 0.2 mg/dL (0.0-0.3); Bilirubin,Total 0.3 mg/dL (0.0-1.0); Blood Urea Nitrogen 11 mg/dl (8-23); Calcium 9.1 mg/dl (8.6-10.4); Carbon Dioxide 22 mmol/L (22-30); Chloride 98 mmol/L (96-108); Globulin 3.4 gm/dL (2.2-3.7); Glomerular Filtration Rate 87; Glucose 158 mg/dL (70-105); Lactate Dehydrogenase 235 U/L (94-250); Phosphorous 2.8 mg/dL (2.7-4.5); Triglycerides 52 mg/dl (<150); Uric Acid 2.1 mg/dL (2.5-8.0)
[2019-06-21] MEDS: LORazepam 2 MG/ML VIAL IV PRN ×2 (11:09→20:19)
[2019-06-21] MEDS: MELATONIN 3 MG TABLET PO SCH (21:51)
[2019-06-22] MEDS: 0.9 % SODIUM CHLORIDE 10 ML SYRINGE IV SCH ×3 (04:41→23:53)
--- NOTE | 2019-06-22 07:20 | Internal Med Progress Note ---
Medical - PN: Subj Patient information: Note initiated : 06/22/19 at 7:16 am Service Date, if different from initiated Date: [] Patient: Elisha Alfaro 79 y/o F admitted on 06/20/19 for Frequent falls. Chief Complaint: [] Interval history: Ms. Alfaro is a 79 year old F Presents the ED with generalized weakness falling pelvic pain. Patient has been seen in the ED multiple times since being diagnosed with a pelvic fracture. 04/26 she presented with pelvic hip pain with no obvious trauma was found to have a hairline fracture of the left pubic ramus 05/06 presented back for some pain and noted had a hematoma at the fracture site 05/16 presented back for fall weakness and was found to have influenza 06/14 presented with swallowing difficulty and was evaluated for stroke which was negative work-up. Barium swallow which had some positive findings and she was scheduled to have a follow-up barium swallow with speech therapy this coming week. 06/19 presented for weakness swallowing issues and diagnosed with UTI Now presents today again because of weakness and she fell again this morning. She is does not feel safe at home family is concerned with her as well feel she needs to be in a rehab facility. She is afebrile laboratories unremarkable. This x-ray shows some interstitial findings, I suspect this to be related to probably a pneumonitis from aspiration, she has no respiratory symptoms otherwise and does not appear to have pneumonia. Regarding her swallowing she says is been going on for couple several weeks and the it is most noticeable solids she is mostly able to tolerate a liquid diet although occasionally will show cough up water through her nose. She tolerated a boost drink this morning and coffee. She also reports that she feels like food gets stuck in her throat after she initiates a swallow. She denies any pyrosis. She denies any coughing other than when she is having the coughing from swallowing food or when she is trying to clear her throat of phlegm. Chest pain fevers or chills, denying shortness of breath. 06/21 Seemed to have some aspiration with the number of pills last night and seemed more hoarse after the event better this morning. NG tube last night. Do bedsid e swallow eval and see how she does with mildly thickened liquids as she was doing well with nutritional shakes before. Speech therapy to see tomorrow. She has a weak cough and an occasional cough mostly to try to cough up phlegm. She has some shortness of breath that is improved from yesterday. 06/22 To go to sleep last night. Little anxious. Was just given her home benzodiazepine. Speech therapy evaluation today. Mild left groin pain where the pelvic fracture is. Review of Systems: denies headache/fever/chills/nausea/vomiting/chest or abdominal pain/diarrhea. Otherwise see above. - Constitutional Vitals: Vital Signs Temp Pulse Resp BP Pulse Ox 98.8 F 99 H 16 156/86 93 06/22/19 03:47 06/22/19 03:47 06/22/19 03:47 06/22/19 03:47 06/22/19 03:47 Period Temp Pulse Resp BP Sys/Schumacher Pulse Ox Last 24 Hr 97.9 F-98.9 F 77-105 - 110-156/64-96 93-98 Intake and Output 06/21/19 06/22/19 06/22/19 21:59 05:59 13:59 Intake Total 220 1050 Output Total 101 101 Balance 119 949 Weight 47.627 kg Intake & Output: Intake & Output 06/21/19 06/22/19 06/22/19 21:59 05:59 13:59 Intake Total 220 1050 Output Total 101 101 Balance 119 949 Weight 47.627 kg Intake: IV 1000 Sodium Chloride 0.9% 1,000 ml @ 1000 50 mls/hr IV .Q20H [facility] Rx#: [id number] Oral 220 50 Tube Feeding 0 Output: Void Amount 100 100 # of times incontinent of urine 1 1 Other: Meal Dinner Percent of Meal Consumed 10% Feeding Ability Assist with Tray Set Up Urine Appearance Clear Urine Color Dark Yellow Stool Size Small Stool Color Green Stool Consistency Liquid Loose Exam: General: Alert, Awake, No acute Distress Eyes/N/T: EOMI, Head/Neck: neck supple, CV: RRR, No murmurs, Pulm: diminished bases R>L, no wheezing/rhonchi/rales Abd: soft, nontender, +BS x4 Ext: no clubbing/cyanosis/edema Neuro: Alert, moves all extremities, symmetrical strength b/l upper/lower, sensations intact b/l upper/lower Skin: warm/dry Medical - PN: Obj Da - Labs CBC & Chem 7: 06/21/19 09:58 06/21/19 09:58 Labs: Abnormal Lab Results 06/21/19 06/21/19 06/20/19 09:58 09:58 17:32 WBC 12.7 H MPV Gran % 88.1 H Lymph % (Auto) 7.1 L Gran # 11.15 H Lymph # (Auto) 0.90 L POC Creatinine Glucose 158 H POC Glucose Uric Acid 2.1 L POC WB Ioniz Calcium Alkaline Phosphatase 201 H Urine Ketones 5/tr A 06/20/19 06/20/19 06/20/19 12:10 12:10 12:10 WBC MPV 10.6 H Gran % Lymph % (Auto) Gran # Lymph # (Auto) 1.33 L POC Creatinine 0.5 L Glucose 181 H POC Glucose 177 H Uric Acid POC WB Ioniz Calcium 1.12 L Alkaline Phosphatase 195 H Urine Ketones Meds: Medications Albuterol/Ipratropium (Duoneb) 3 ml NEB Q4HP PRN PRN Reason: Shortness Of Breath Last Admin: 06/21/19 03:21 Dose: 3 ml Documented by: Aspirin (Aspirin) 81 mg PO DAILY [facility] Last Admin: 06/21/19 10:02 Dose: Not Given Documented by: Dextrose (Dextrose 50%) 0 ml IV UD PRN PRN Reason: Hypoglycemia Diagnostic Test (Pha) (Accu-Chek) 1 each FS ACHS [facility] Last Admin: 06/21/19 21:51 Dose: 1 each Documented by: Enalaprilat (Vasotec) 0 mg IV Q2HP PRN PRN Reason: Hypertension Enoxaparin Sodium (Lovenox) 30 mg SQ DAILY [facility] Last Admin: 06/21/19 08:35 Dose: 30 mg Documented by: Glucose (Insta-Glucose) 15 gm PO PRN PRN PRN Reason: Hypoglycemia Potassium Chloride 40 meq/ (Dextrose) 520 mls @ 130 mls/hr IV UD PRN PRN Reason: Potassium < 3 Magnesium Sulfate (Magnesium Sulfate) 2 gm in 50 mls @ 50 mls/hr IV UD PRN PRN Reason: Magnesium </= 1.6 Acetaminophen (Ofirmev) 650 mg in 65 mls @ 130 mls/hr IV Q6HP PRN; Protocol PRN Reason: PAIN/FEVER > 101 Last Infusion: 06/21/19 10:52 Dose: Infused Documented by: Ceftriaxone Sodium 2 gm/ (Dextrose) 50 mls @ 100 mls/hr IV DAILY [facility] Insulin Glargine (Lantus) 5 unit SQ DAILY [facility] Last Admin: 06/21/19 08:34 Dose: 5 units Documented by: Insulin Human Lispro (Humalog) 0 unit SQ ACHS [facility]; Protocol Last Admin: 06/21/19 22:00 Dose: 4 units Documented by: Levothyroxine Sodium (Synthroid) 200 mcg PO ACB [facility] Last Admin: 06/21/19 09:51 Dose: 200 mcg Documented by: Lorazepam (Ativan) 0.5 mg IV BIDP PRN PRN Reason: ANXIETY/SEDATION Last Admin: 06/21/19 20:19 Dose: 0.5 mg Documented by: Melatonin (Melatonin 3mg Tablet) 3 mg PO QHS [facility] Last Admin: 06/21/19 21:51 Dose: 3 mg Documented by: Morphine Sulfate (Morphine) 0 mg IV Q3HP PRN PRN Reason: Pain Last Admin: 06/22/19 05:30 Dose: 1 mg Documented by: Ondansetron HCl (Zofran) 4 mg IV Q4HP PRN PRN Reason: Nausea And Vomiting Pantoprazole Sodium (Protonix) 40 mg IV QAMAC [facility] Last Admin: 06/21/19 07:36 Dose: 40 mg Documented by: Polyethylene Glycol (Miralax) 17 gm PO DAILYP PRN PRN Reason: Constipation Sertraline HCl (Zoloft) 100 mg PO QDAY [facility] Last Admin: 06/21/19 09:51 Dose: 100 mg Documented by: Sodium Chloride (Saline Flush) 10 ml IV Q8 [facility] Last Admin: 06/22/19 04:41 Dose: 10 ml Documented by: Medical - PN: A/P - Time Spent With Patient Total time spent is greater than 50% in coordination of care (as documented) at patient's floor/unit and/or counseling patient: - Narrative A/P Narrative: A: *Generalized weakness/falls/debility: *Recent pelvic fracture: on 04/26 and likely reinjured it with the fall [employer]. *Dysphagia: -Barium swallow from [facility] (06/16/2019) reveals normal esophagus and her dysphagia was felt to be more oropharyngeal with swallow initiation, there was concern potential aspiration. Recommendation was for modified swallow eval with ST. *Aspiration pneumonitis/PNA: *UTI recent diagnosis: repeat UA unremarkable, *DM: *HTN: *Anxiety/depression: *Hypothyroidism: * P: -ST for modified barium swallow -f/u with PCP/GI regarding continued w/u of dysphagia -Pt/ot -ppi -rocEphin -SSI and basal -cont home BP/Anxiety meds -ppx: lovenox DNR Medical - PN: Qual - Stroke Symptom Onset Unknown: No - VTE Deep Vein Thrombosis/Pulmonary Embolism Present on Admission: No
[2019-06-22] MEDS: LORazepam 2 MG/ML VIAL IV PRN (08:09)
[2019-06-22] MEDS: INSULIN LISPRO 1 UNIT/0.01 ML UNIT SQ SCH ×4 (08:09→21:46)
[2019-06-22 08:23] LABS: Basophils # (Auto) 0.01 K/mcL (0.00-0.30); Basophils % (Auto) 0.1 % (0.0-2.0); Eosinophils # (Auto) 0 K/mcL (0.00-0.70); Eosinophils % (Auto) 0 % (0.0-7.0); Granulocytes % (Auto) 91.3 % (38.0-78.0); Hematocrit 48.7 % (34.1-44.9); Hemoglobin 15.8 g/dL (11.2-15.7); Lymphocytes # (Auto) 0.74 K/mcL (1.50-4.80); Lymphocytes % (Auto) 4.4 % (15.5-49.0); Mean Cell Volume 92.1 fL (80.0-100.0); Mean Corpuscular HGB Conc 32.4 g/dL (31.0-36.0); Mean Platelet Volume 10.6 fL (7.4-10.4); Monocytes % (Auto) 4.2 % (1.0-12.0); Platelet Count 302 K/mcL (140-440); RBC 5.29 M/mcL (3.59-5.38); Red Cell Distribution Width 12.9 % (11.5-14.5); WBC 16.7 K/mcL (4.50-11.00)
[2019-06-22 08:47] LABS: ALT/SGPT 23 U/l (0-40); AST/SGOT 31 U/l (0-37); Albumin 3.5 gm/dL (3.2-5.2); Albumin/Globulin Ratio 0.9 (1.0-2.3); Alkaline Phosphatase 192 U/L (39-117); Bilirubin,Direct < 0.2 mg/dL (0.0-0.3); Bilirubin,Total 0.4 mg/dL (0.0-1.0); Blood Urea Nitrogen 18 mg/dl (8-23); Calcium 9.2 mg/dl (8.6-10.4); Carbon Dioxide 19 mmol/L (22-30); Chloride 97 mmol/L (96-108); Globulin 3.7 gm/dL (2.2-3.7); Glomerular Filtration Rate 93; Glucose 185 mg/dL (70-105); Lactate Dehydrogenase 275 U/L (94-250); Phosphorous 3.1 mg/dL (2.7-4.5); Triglycerides 67 mg/dl (<150); Uric Acid 2.5 mg/dL (2.5-8.0)
[2019-06-22] MEDS: ENOXAPARIN 30 MG/0.3 ML SYRINGE SQ SCH (08:54)
[2019-06-22] MEDS: PANTOPRAZOLE 40 MG VIAL IV SCH (08:54)
[2019-06-22] MEDS: SERTRALINE 100 MG TABLET PO SCH (08:55)
[2019-06-22] MEDS ORDERED: cefTRIAXone 1 GM VIAL IV SCH (09:00)
[2019-06-22] MEDS ORDERED: INSULIN GLARGINE, HUMAN 1 UNIT/0.01 ML SQ SCH (09:00)
[2019-06-22] MEDS ORDERED: cefTRIAXone 2 GM in DEXTROSE 5% IN WATER 50 ML IV SCH (09:00)
[2019-06-22] MEDS: LEVOTHYROXINE 100 MCG TABLET PO SCH (09:19)
[2019-06-22] MEDS: ASPIRIN 81 MG TAB.CHEW PO SCH (09:20)
[2019-06-22] MEDS ORDERED: AZITHROMYCIN 500 MG in DEXTROSE 5% IN WATER 250 ML IV SCH (09:30)
[2019-06-22] MEDS ORDERED: 0.9 % SODIUM CHLORIDE 500 ML IV SCH (09:30)
[2019-06-22 10:06] LABS: Band Neutrophils % 3 % (0-10); Lymphocytes % 4 % (15-49); Monocytes % (Manual) 3 % (1-12); Platelet Estimate NORMAL (NORMAL); RBC Morphology NORMAL (NORMAL); Segmented Neutrophils % 90 % (38-78)
--- NOTE | 2019-06-22 10:53 | Discharge Summary ---
Medical - DS: Prov Patient information: Note initiated : 06/22/19 at 10:50 am Service Date, if different from initiated Date: [] Patient: Elisha Alfaro 79 y/o F admitted on 06/20/19 for Frequent falls. Chief Complaint: [] Date of admission: 06/20/19 15:35 Primary care physician: Osbaldo Aguilar Consults: 06/20/19 Consult to Physician [CONS] Stat Comment: Consulting Provider: William Lewis Reason For Exam: Physician to Consult Medical - DS: Meds - Discharge Medications Prescriptions: Amoxicillin/Potassium Clav [Augmentin] 875 mg PO Q12H #6 tablet Active and Home Medications: Home Medications aspirin 81 mg tablet,delayed release 81 mg PO QDAY tab 12/03/14 [History Confirmed 06/20/19 Last Taken 06/20/19 07:00] beclomethasone diprop (AQ) 42 mcg (0.042 %) nasal spray 42 mcg INTRANASAL BID PRN g 12/03/14 [History Confirmed 06/20/19 Last Taken Unknown] cholecalciferol (vitamin D3) 25 mcg (1,000 unit) capsule 2,000 unit PO QDAY cap 12/03/14 [History Confirmed 06/20/19 Last Taken Unknown] conjugated estrogens 0.625 mg/gram vaginal cream 1 g VAGINAL QDAY g 12/03/14 [History Confirmed 06/20/19 Last Taken Unknown] xztdhdpowjnq-itjkaowg-towxli 1 tab PO QDAY tab 12/03/14 [History Confirmed 06/20/19 Last Taken Unknown] metronidazole 500 mg tablet 500 mg PO TID 10 Days #30 tab 06/14/16 [History Confirmed 06/20/19 Last Taken Unknown] calcitonin (salmon) 200 unit/actuation nasal spray 1 spray INTRANASAL QDAY #3.7 ml 07/24/16 [Rx Confirmed 06/20/19 Last Taken 06/20/19] sertraline 100 mg tablet 100 mg PO QDAY 90 Days #90 tab 07/31/16 [Rx Confirmed 06/20/19 Last Taken 06/20/19] levothyroxine 200 mcg tablet 200 mcg PO QDAY 90 Days #90 tab 08/06/16 [Rx Confirmed 06/20/19 Last Taken 06/20/19] Humalog U-100 Insulin 100 unit/mL subcutaneous solution See Dose Instructions .ROUTE .COMPLEX #10 ml NS 12/04/16 [Rx Confirmed 06/20/19 Last Taken Unknown] fentanyl 50 mcg/hr transdermal patch 1 patch TRANSDERMA Q72H #10 patch 03/06/17 [Rx Confirmed 06/20/19 Last Taken 06/20/19] lisinopril 5 mg tablet 2.5 mg PO QDAY #30 tab 03/11/17 [Rx Confirmed 06/20/19 Last Taken Unknown] Ciprofloxacin [Cipro] 500 mg PO BID #14 tab 06/19/19 [Rx Confirmed 06/20/19 Last Taken 06/19/19] Insulin Glargine, Human [Lantus] 1 unit SUBCUT QHS 06/21/19 [History Confirmed 06/21/19 Last Taken Unknown] Insulin Glargine, Human [Lantus] 10.5 units SUBCUT QAMAC 06/21/19 [History Confirmed 06/21/19 Last Taken Unknown] LORazepam [Lorazepam] 1 - 2 mg PO QHS 06/21/19 [History Confirmed 06/21/19 Last Taken Unknown] LORazepam [Lorazepam] 1 mg PO BID 06/21/19 [History Confirmed 06/21/19 Last Taken Unknown] Medical - DS: Hosp Hospital Course: Ms. Alfaro is a 79 year old F Presents the ED with generalized weakness falling pelvic pain. Patient has been seen in the ED multiple times since being diagnosed with a pelvic fracture. 04/26 she presented with pelvic hip pain with no obvious trauma was found to have a hairline fracture of the left pubic ramus 05/06 presented back for some pain and noted had a hematoma at the fracture site 05/16 presented back for fall weakness and was found to have influenza 06/14 presented with swallowing difficulty and was evaluated for stroke which was negative work-up. Barium swallow which had some positive findings and she was scheduled to have a follow-up barium swallow with speech therapy this coming week. 06/19 presented for weakness swallowing issues and diagnosed with UTI Now presents today again because of weakness and she fell again this morning. She is does not feel safe at home family is concerned with her as well feel she needs to be in a rehab facility. She is afebrile laboratories unremarkable. This x-ray shows some interstitial findings, I suspect this to be related to probably a pneumonitis from aspiration, she has no respiratory symptoms otherwise and does not appear to have pneumonia. Regarding her swallowing she says is been going on for couple several weeks and the it is most noticeable solids she is mostly able to tolerate a liquid diet although occasionally will show cough up water through her nose. She tolerated a boost drink this morning and coffee. She also reports that she feels like food gets stuck in her throat after she initiates a swallow. She denies any pyrosis. She denies any coughing other than when she is having the coughing from swallowing food or when she is trying to clear her throat of phlegm. Chest pain fevers or chills, denying shortness of breath. 06/21 Seemed to have some aspiration with the number of pills last night and seemed more hoarse after the event better this morning. NG tube last night. Do bedside swallow eval and see how she does with mildly thickened liquids as she was doing well with nutritional shakes before. Speech therapy to see tomorrow. She has a weak cough and an occasional cough mostly to try to cough up phlegm. She has some shortness of breath that is improved from yesterday. 06/22 To go to sleep last night. Little anxious. Was just given her home benzodiazepine. Speech therapy evaluation today. Mild left groin pain where the pelvic fracture is. Discharge diagnosis: Severe oral pharyngeal dysphasia recent pelvic fracture generalized weaknes Secondary discharge diagnosis: Generalized weakness falls debility aspiration pneumonia diabetes hypertension anxiety depression hypothyroidism - Time Spent with Patient Total time spent providing and/or coordinating discharge services: Greater than 30 minutes Medical - DS: Exam - Constitutional Vitals: Vital Signs Temp Pulse Resp BP Pulse Ox 06/22/19 08:00 98.4 F 101 H 26 H 145/82 95 06/22/19 07:50 92 06/22/19 03:47 98.8 F 99 H 16 156/86 93 06/21/19 23:39 97.9 F 104 H 18 149/80 98 06/21/19 19:23 98.9 F 98 H 20 154/96 96 06/21/19 16:00 98.0 F 105 H 18 149/82 94 06/21/19 11:41 98.6 F 86 16 110/70 96 Intake and Output 06/21/19 06/22/19 06/22/19 21:59 05:59 13:59 Intake Total 220 1050 0 Output Total 101 101 Balance 119 949 0 Intake: IV 1000 Sodium Chloride 0.9% 1,000 ml @ 1000 50 mls/hr IV .Q20H [facility] Rx#: [id number] Oral 220 50 Tube Feeding 0 0 Output: Void Amount 100 100 # of times incontinent of urine 1 1 Other: Meal Dinner Percent of Meal Consumed 10% Feeding Ability Assist with Tray Set Up Urine Appearance Clear Urine Color Dark Yellow Stool Size Small Stool Color Green Stool Consistency Liquid Loose Weight 47.627 kg Medical - DS: Data Labs on day of discharge: Labs from last 24 hours 06/22/19 06/22/19 06/22/19 07:28 07:28 07:28 WBC 16.7 H RBC 5.29 Hgb 15.8 H Hct 48.7 H MCV 92.1 MCH 29.9 MCHC 32.4 RDW 12.9 Plt Count 302 MPV 10.6 H Gran % 91.3 H Lymph % (Auto) 4.[address] [place] % (Auto) 4.2 Eos % (Auto) 0 Baso % (Auto) 0.1 Gran # 15.25 H Lymph # (Auto) 0.[address] [place] # (Auto) 0.70 Eos # (Auto) 0 Baso # (Auto) 0.01 Total Counted 100 Seg Neutrophils % 90 H Band Neutrophils % 3 Lymphocytes % 4 L Monocytes % (Manual) 3 Platelet Estimate Normal RBC Morphology Normal Sodium 135 Potassium 3.9 Chloride 97 Carbon Dioxide 19 L Anion Gap 19.0 H BUN 18 Creatinine 0.5 L GFR Calculation 93 Glucose 185 H Uric Acid 2.5 Calcium 9.2 Phosphorus 3.1 Magnesium 2.0 Total Bilirubin 0.4 Direct Bilirubin < 0.2 GGT 22 AST 31 ALT 23 Alkaline Phosphatase 192 H Lactate Dehydrogenase 275 H Total Protein 7.2 Albumin 3.5 Globulin 3.7 Albumin/Globulin Ratio 0.9 L Triglycerides 67 Procalcitonin 06/21/19 06/21/19 09:58 09:58 WBC RBC Hgb Hct MCV MCH MCHC RDW Plt Count MPV Gran % Lymph % (Auto) [place] % (Auto) Eos % (Auto) Baso % (Auto) Gran # Lymph # (Auto) [place] # (Auto) Eos # (Auto) Baso # (Auto) Total Counted Seg Neutrophils % Band Neutrophils % Lymphocytes % Monocytes % (Manual) Platelet Estimate RBC Morphology Sodium 135 Potassium 3.3 Chloride 98 Carbon Dioxide 22 Anion Gap 15.0 BUN 11 Creatinine 0.6 GFR Calculation 87 Glucose 158 H Uric Acid 2.1 L Calcium 9.1 Phosphorus 2.8 Magnesium 1.9 Total Bilirubin 0.3 Direct Bilirubin < 0.2 GGT 23 AST 34 ALT 30 Alkaline Phosphatase 201 H Lactate Dehydrogenase 235 Total Protein 7.2 Albumin 3.8 Globulin 3.4 Albumin/Globulin Ratio 1.1 Triglycerides 52 Procalcitonin < 0.05 Medical - DS: A/P - Patient/Caregiver Discharge Instructions Activity: as per physical therapy Additional Instructions: Patient is going to be admitted under observation, under the care of the hospitalist (Dr. Lewis). All further treatment decisions and modalities to be carried out by the hospitalist. Referral to see gastroenterology 5 to 10 days for continued dysphagia work-up - Follow up Plan Follow up with: Osbaldo Aguilar MD [Primary Care Provider] - Disposition: [facility] Prognosis: Fair Rehab Potential: Fair Overall status at discharge: patient is progressing back to baseline Medical - DS: Qual - VTE Deep Vein Thrombosis/Pulmonary Embolism Present on Admission: No
--- NOTE | 2019-06-22 11:26 | Magnetic Resonance Report ---
History: Stroke symptoms with new onset oropharyngeal dysphasia and right facial droop TECHNIQUE: Stroke protocol was utilized with sagittal T1 FLAIR, axial T2 FLAIR and axial diffusion and ADC map images. TECHNIQUE: There is no evidence of a hemorrhage, infarct or mass. There are age-related degenerative changes with mild generalized atrophy predominantly involving the frontal and parietal lobes. There are few small scattered white matter lesions in the frontal and parietal lobes. This may be due to age-related ischemia or degeneration. No abnormal extra-axial fluid collection is present. The ventricles are normal in size. Allowing for differences in technique there has been little change from the prior unenhanced head CT performed on 06/19/19. IMPRESSION: No evidence of infarct or other acute intracranial abnormality Stable age-related degenerative changes Dr. Lewis was called with the results. Interpreted and Authenticated by: Kemar Delarosa 06/22/19
--- NOTE | 2019-06-22 11:41 | XRay Report ---
HISTORY: Dysphagia FINDINGS: Patient was given 1 teaspoon of thin liquid barium to drink. Approximately one third of the bolus of barium passed through the vocal cords into the trachea. This elicited a very weak cough reflex. 18 seconds of fluoroscopy time was used. IMPRESSION: Large amount of aspiration Interpreted and Authenticated by: Kemar Delarosa 06/22/19
[2019-06-22] MEDS ORDERED: LORazepam 2 MG/ML VIAL IV PRN ×2 (12:18→14:17)
[2019-06-22] MEDS ORDERED: PYRIDOSTIGMINE 60 MG TABLET PO SCH (14:00)
[2019-06-22] MEDS: PYRIDOSTIGMINE 60 MG TABLET NGTUBE SCH ×3 (14:32→20:36)
[2019-06-22] MEDS: MELATONIN 3 MG TABLET PO SCH (20:36)
[2019-06-22] MEDS ORDERED: CHLORHEXIDINE GLUCONATE 1 ML ORAL.SOL SWABMOUTH SCH (21:00)
[2019-06-23] MEDS ORDERED: NALOXONE HCL 0.4 MG/ML VIAL ONE ×2 (00:51→02:00)
[2019-06-23] MEDS ORDERED: FUROSEMIDE 20 MG/2 ML VIAL IV ONE ×2 (01:28→01:32)
[2019-06-23] MEDS ORDERED: IPRATROPIUM/ALBUTEROL 3 ML AMPUL.NEB NEB PRN ×3 (01:32→04:13)
[2019-06-23] MEDS ORDERED: FLUMAZENIL 0.1 MG/ML ML IV ONE (02:02)
[2019-06-23] MEDS ORDERED: SCOPOLAMINE 1 PATCH PATCH TOPICAL SCH (02:15)
--- NOTE | 2019-06-23 02:35 | Event Note ---
Called by house staff regarding deterioration in patient. Nursing noted pulse oximetry alarm and went and found patient de-satting with reports that she was very lethargic and hypoxic and lung auscultation was rhonchorous. Placed on nonrebreather with improvement in sats. ABG shows respiratory acidosis with 7.23/71/80. Did start Mestinon earlier today after discussion with neurology. When family arrived during the event I was eventually able to sit down and visit with them - they reported to me how surprised they were when they saw her at dinnertime as she seemed to have shown moderate to significant improvement in her symptoms, including much improvement in the droopiness of her eye. Although nursing shift summary notes do not note improvements. I suspect that she aspirated, likely on her secretions. As the chest x-ray obtain is evidence of that as well. I discussed with them the disease specific nature of this respiratory event associated with myasthenia gravis. The patient is a DO NOT RESUSCITATE. I broached the idea of going against the patient's wishes in this specific scenario and placing her on mechanical ventilation. I discussed that this could potentially get her through this current decline. I also mentioned that she could end up requiring a tracheostomy. After discussion with the 3 family members it was felt that it was best to honor her wishes and to avoid mechanical ventilation. To continue BiPAP and if she declined, then we were to transition her to comfort care only. Patient was placed on BiPAP and transition to the ICU.
[2019-06-23] MEDS ORDERED: SCOPOLAMINE 1 PATCH PATCH ONE (03:21)
[2019-06-23] MEDS ORDERED: ONDANSETRON 4 MG/2 ML VIAL IV PRN ×2 (04:13→11:28)
[2019-06-23] MEDS ORDERED: POLYETHYLENE GLYCOL 3350 17 GM PACKET PO PRN (04:13)
[2019-06-23] MEDS ORDERED: DEXTROSE 31 GM ORAL.SUSP PO PRN (04:13)
[2019-06-23] MEDS ORDERED: DEXTROSE 50% 50 ML VIAL IV PRN (04:13)
[2019-06-23] MEDS ORDERED: MAGNESIUM SULFATE 2 GM/50 ML BAG IV PRN (04:13)
[2019-06-23] MEDS ORDERED: POTASSIUM CHLORIDE 40 MEQ in DEXTROSE 5% IN WATER 500 ML IV PRN (04:13)
[2019-06-23] MEDS ORDERED: ACETAMINOPHEN 650 MG/65 ML BOTTLE IV PRN (04:13)
[2019-06-23] MEDS ORDERED: LORazepam 2 MG/ML VIAL IV PRN ×2 (04:13→11:28)
[2019-06-23] MEDS ORDERED: ENALAPRILAT 1.25 MG/ML VIAL IV PRN (04:13)
[2019-06-23] MEDS ORDERED: 0.9 % SODIUM CHLORIDE 10 ML SYRINGE IV SCH ×2 (06:00→14:00)
--- NOTE | 2019-06-23 07:25 | Internal Med Progress Note ---
Medical - PN: Subj Patient information: Note initiated : 06/23/19 at 7:19 am Service Date, if different from initiated Date: [] Patient: Elisha Alfaro 79 y/o F admitted on 06/20/19 for Frequent falls. Chief Complaint: [] Interval history: Ms. Alfaro is a 79 year old F Presents the ED with generalized weakness falling pelvic pain. Patient has been seen in the ED multiple times since being diagnosed with a pelvic fracture. 04/26 she presented with pelvic hip pain with no obvious trauma was found to have a hairline fracture of the left pubic ramus 05/06 presented back for some pain and noted had a hematoma at the fracture site 05/16 presented back for fall weakness and was found to have influenza 06/14 presented with swallowing difficulty and was evaluated for stroke which was negative work-up. Barium swallow which had some positive findings and she was scheduled to have a follow-up barium swallow with speech therapy this coming week. 06/19 presented for weakness swallowing issues and diagnosed with UTI Now presents today again because of weakness and she fell again this morning. She is does not feel safe at home family is concerned with her as well feel she needs to be in a rehab facility. She is afebrile laboratories unremarkable. This x-ray shows some interstitial findings, I suspect this to be related to probably a pneumonitis from aspiration, she has no respiratory symptoms otherwise and does not appear to have pneumonia. Regarding her swallowing she says is been going on for couple several weeks and the it is most noticeable solids she is mostly able to tolerate a liquid diet although occasionally will show cough up water through her nose. She tolerated a boost drink this morning and coffee. She also reports that she feels like food gets stuck in her throat after she initiates a swallow. She denies any pyrosis. She denies any coughing other than when she is having the coughing from swallowing food or when she is trying to clear her throat of phlegm. Chest pain fevers or chills, denying shortness of breath. 06/21 Seemed to have some aspiration with the number of pills last night and seemed more hoarse after the event better this morning. NG tube last night. Do bedsid e swallow eval and see how she does with mildly thickened liquids as she was doing well with nutritional shakes before. Speech therapy to see tomorrow. She has a weak cough and an occasional cough mostly to try to cough up phlegm. She has some shortness of breath that is improved from yesterday. 06/22 To go to sleep last night. Little anxious. Was just given her home benzodiazepine. Speech therapy evaluation today. Mild left groin pain where the pelvic fracture is. 06/23 Called by house staff early in the morning regarding deterioration in patient. Nursing noted pulse oximetry alarm and went and found patient de-satting with reports that she was very lethargic and hypoxic and lung auscultation was rhonchorous. Placed on nonrebreather with improvement in sats. ABG shows respiratory acidosis with 7.23/71/80. Did start Mestinon earlier today after discussion with neurology. When family arrived during the event I was eventually able to sit down and visit with them - they reported to me how surprised they were when they saw her at dinnertime as she seemed to have shown moderate to significant improvement in her symptoms, including much improvement in the droopiness of her eye. Although nursing shift summary notes do not note improvements. I suspect that she aspirated, likely on her secretions. As the chest x-ray obtain is evidence of that as well. I discussed with them the disease specific nature of this respiratory event associated with myasthenia gravis. The patient is a DO NOT RESUSCITATE. I broached the idea of going against the patient's wishes in this specific scenario and placing her on mechanical ventilation. I discussed that this could potentially get her through this current decline. I also mentioned that she could end up requiring a tracheostomy. After discussion with the 3 family members it was felt that it was best to honor her wishes and to avoid mechanical ventilation. To continue BiPAP and if she declined, then we were to transition her to comfort care only. Patient was placed on BiPAP and transition to the ICU. *Around 9am she had another episode where she went hypoxic even on the BiPAP. She is placed on bag valve mask and suction with unimpressive amounts suctioned. Were able to increase her oxygenation appropriately. Placed in nasotracheal tube in and available place her back on BiPAP. Family present. Unable to gather review of systems given BiPAP and current state. - Constitutional Vitals: Vital Signs Temp Pulse Resp BP Pulse Ox 99.0 F 95 H 25 H 137/73 98 06/23/19 00:55 06/23/19 04:22 06/23/19 04:22 06/23/19 00:55 06/23/19 04:22 Period Temp Pulse Resp BP Sys/Schumacher Pulse Ox Last 24 Hr 97.0 F-99.0 F 82-115 15-32 95-145/60-83 90-98 Intake and Output 06/22/19 06/23/19 06/23/19 21:59 05:59 13:59 Intake Total 1040 20 Output Total 1 1 Balance 1039 19 Weight 47.627 kg Intake & Output: Intake & Output 06/22/19 06/23/19 06/23/19 21:59 05:59 13:59 Intake Total 1040 20 Output Total 1 1 Balance 1039 19 Weight 47.627 kg Intake: IV 500 Sodium Chloride 0.9% 500 ml @ 500 75 mls/hr IV .Q6H40M [facility] Rx#: [id number] Tube Feeding 420 20 GI Tube Flush 120 Output: # of times incontinent of urine 1 1 Other: Urine Color Green Stool Size Small Stool Color Brown Green Stool Consistency Loose # Voids 1 # Bowel Movements 1 Exam: General: Awake but drowsy, No acute Distress Eyes/N/T: EOMI, Head/Neck: neck supple, CV: RRR, No murmurs, Pulm: diminished b/l especially left, right with rhonchi Abd: soft, nontender, +BS x4 Ext: no clubbing/cyanosis/edema Neuro: awake but drowsy, moves all extremities, Skin: warm/dry Medical - PN: Obj Da - Labs CBC & Chem 7: 06/23/19 07:47 06/23/19 07:47 Labs: Abnormal Lab Results 06/22/19 06/22/19 06/22/19 07:28 07:28 07:28 WBC 16.7 H Hgb 15.8 H Hct 48.7 H MPV 10.6 H Gran % 91.3 H Lymph % (Auto) 4.4 L Gran # 15.25 H Lymph # (Auto) 0.74 L Seg Neutrophils % 90 H Lymphocytes % 4 L Carbon Dioxide 19 L Anion Gap 19.0 H Creatinine 0.5 L POC Creatinine Glucose 185 H POC Glucose Uric Acid POC WB Ioniz Calcium Alkaline Phosphatase 192 H Lactate Dehydrogenase 275 H Albumin/Globulin Ratio 0.9 L Urine Ketones 01/06/21/19 06/20/19 09:58 09:58 17:32 WBC 12.7 H Hgb Hct MPV Gran % 88.1 H Lymph % (Auto) 7.1 L Gran # 11.15 H Lymph # (Auto) 0.90 L Seg Neutrophils % Lymphocytes % Carbon Dioxide Anion Gap Creatinine POC Creatinine Glucose 158 H POC Glucose Uric Acid 2.1 L POC WB Ioniz Calcium Alkaline Phosphatase 201 H Lactate Dehydrogenase Albumin/Globulin Ratio Urine Ketones 5/tr A 06/20/19 06/20/19 06/20/19 12:10 12:10 12:10 WBC Hgb Hct MPV 10.6 H Gran % Lymph % (Auto) Gran # Lymph # (Auto) 1.33 L Seg Neutrophils % Lymphocytes % Carbon Dioxide Anion Gap Creatinine POC Creatinine 0.5 L Glucose 181 H POC Glucose 177 H Uric Acid POC WB Ioniz Calcium 1.12 L Alkaline Phosphatase 195 H Lactate Dehydrogenase Albumin/Globulin Ratio Urine Ketones Meds: Medications Albuterol/Ipratropium (Duoneb) 3 ml NEB Q4HP PRN PRN Reason: Shortness Of Breath Aspirin (Aspirin) 81 mg PO DAILY [facility] Chlorhexidine Gluconate (Peridex) 15 ml SWABMOUTH BID [facility] Dextrose (Dextrose 50%) 0 ml IV UD PRN PRN Reason: Hypoglycemia Diagnostic Test (Pha) (Accu-Chek) 1 each FS ACHS [facility] Enalaprilat (Vasotec) 0 mg IV Q2HP PRN PRN Reason: Hypertension Enoxaparin Sodium (Lovenox) 30 mg SQ DAILY [facility] Glucose (Insta-Glucose) 15 gm PO PRN PRN PRN Reason: Hypoglycemia Ceftriaxone Sodium 2 gm/ (Dextrose) 50 mls @ 100 mls/hr IV Q24H [facility] Potassium Chloride 40 meq/ (Dextrose) 520 mls @ 130 mls/hr IV UD PRN PRN Reason: Potassium < 3 Magnesium Sulfate (Magnesium Sulfate) 2 gm in 50 mls @ 50 mls/hr IV UD PRN PRN Reason: Magnesium </= 1.6 Acetaminophen (Ofirmev) 650 mg in 65 mls @ 130 mls/hr IV Q6HP PRN; Protocol PRN Reason: PAIN/FEVER > 101 Insulin Glargine (Lantus) 8 unit SQ DAILY [facility] Insulin Human Lispro (Humalog) 0 unit SQ ACHS [facility]; Protocol Levothyroxine Sodium (Synthroid) 200 mcg PO ACB [facility] Lorazepam (Ativan) 0.25 mg IV BIDP PRN PRN Reason: ANXIETY/SEDATION Melatonin (Melatonin 3mg Tablet) 3 mg PO QHS [facility] Morphine Sulfate (Morphine) 0 mg IV Q3HP PRN PRN Reason: Pain Ondansetron HCl (Zofran) 4 mg IV Q4HP PRN PRN Reason: Nausea And Vomiting Pantoprazole Sodium (Protonix) 40 mg IV QAMAC [facility] Polyethylene Glycol (Miralax) 17 gm PO DAILYP PRN PRN Reason: Constipation Scopolamine (Transderm-Scop) 1 patch TOPICAL Q72H [facility] Sertraline HCl (Zoloft) 100 mg PO QDAY [facility] Sodium Chloride (Saline Flush) 10 ml IV Q8 [facility] Last Admin: 06/23/19 05:55 Dose: 10 ml Documented by: Medical - PN: A/P - Time Spent With Patient Total time spent is greater than 50% in coordination of care (as documented) at patient's floor/unit and/or counseling patient: - Narrative A/P Narrative: A: *Hypoxic/Hypercapnic Resp Failure: 2/2 aspiration -on Bipap *Dysphagia: failed barium swallow test with ST. Concern that this may be a neuromuscular problem such as Myasthenia Gravis -Barium swallow from [facility] (06/16/2019) reveals normal esophagus and her dysphagia was felt to be more oropharyngeal with swallow initiation, there was concern potential aspiration. Recommendation was for modified swallow eval with ST. *?Myasthenia Gravis: symptoms significant oropharyngeal decompensation along with hoarseness/aphonia and eyelid drop on right -MRI/CT brain negative -seemed to have a response to mestinon per family when they visited her for dinner on 06/22 *Aspiration pneumonitis/PNA: *Recent pelvic fracture: on 04/26 and likely reinjured it with the fall [employer]. *Generalized weakness/falls/debility: *UTI recent diagnosis: repeat UA unremarkable, *DM: *HTN: *Anxiety/depression: *Hypothyroidism: *Goals of Care: per family discussion, cont current treatment, if deteriorates transition to comfort care P: -continue family discussion, established last night that if she deteriorates to transition to comfort care -cont bipap - -discussed the case with [facility] neurologist who did have concern for possible MG and recommended obtain the usual labs and trial of Mestinon IR. -AchR ab's pending -May need PEG, but will hold off for now to see if response to Mestinon -TF's per dietary, temporarily held today -Pt/ot -Abx -SSI and basal -cont home BP/Anxiety meds -ppx: lovenox DNR/DNI Medical - PN: Qual - Stroke Symptom Onset Unknown: No - VTE Deep Vein Thrombosis/Pulmonary Embolism Present on Admission: No
[2019-06-23] MEDS ORDERED: LEVOTHYROXINE 100 MCG TABLET PO SCH (07:30)
[2019-06-23] MEDS ORDERED: PANTOPRAZOLE 40 MG VIAL IV SCH (07:30)
[2019-06-23] MEDS ORDERED: INSULIN LISPRO 1 UNIT/0.01 ML UNIT SQ SCH (07:30)
--- NOTE | 2019-06-23 07:42 | XRay Report ---
HISTORY: Dyspnea and aspiration FINDINGS: There is a moderate size consolidating alveolar infiltrate in the right lower lobe with a milder diffuse interstitial infiltrates throughout the remainder of the right lung. The left lung is relatively clear but there is some interstitial fibrosis and a subtle infiltrate behind the left heart border. Left lung is hyperinflated and there is flattening of the left diaphragm. Trace amount of barium is present in the right lower lobe infiltrate. The patient had aspirated barium while performing a swallowing function study yesterday. There is a feeding tube passing through the esophagus into the stomach. The heart size is normal. Pulmonary vessels, best seen on the left upper lobe are normal. IMPRESSION: Bilateral pneumonia with the greatest involvement in the right lower lobe Interpreted and Authenticated by: Kemar Delarosa 06/23/19
[2019-06-23 08:46] LABS: Hematocrit 42.4 % (34.1-44.9); Hemoglobin 13.7 g/dL (11.2-15.7); Mean Cell Volume 93.8 fL (80.0-100.0); Mean Corpuscular HGB Conc 32.3 g/dL (31.0-36.0); Mean Platelet Volume 10.9 fL (7.4-10.4); Platelet Count 258 K/mcL (140-440); RBC 4.52 M/mcL (3.59-5.38); Red Cell Distribution Width 12.9 % (11.5-14.5); WBC 18.9 K/mcL (4.50-11.00)
[2019-06-23] MEDS ORDERED: SERTRALINE 100 MG TABLET PO SCH (09:00)
[2019-06-23] MEDS ORDERED: ASPIRIN 81 MG TAB.CHEW PO SCH (09:00)
[2019-06-23] MEDS ORDERED: CHLORHEXIDINE GLUCONATE 1 ML ORAL.SOL SWABMOUTH SCH (09:00)
[2019-06-23] MEDS ORDERED: INSULIN GLARGINE, HUMAN 1 UNIT/0.01 ML SQ SCH (09:00)
[2019-06-23] MEDS ORDERED: ENOXAPARIN 30 MG/0.3 ML SYRINGE SQ SCH (09:00)
[2019-06-23] MEDS ORDERED: cefTRIAXone 2 GM in DEXTROSE 5% IN WATER 50 ML IV SCH (09:00)
[2019-06-23 09:07] LABS: ALT/SGPT 63 U/l (0-40); AST/SGOT 68 U/l (0-37); Albumin 3.4 gm/dL (3.2-5.2); Alkaline Phosphatase 185 U/L (39-117); Bilirubin,Direct < 0.2 mg/dL (0.0-0.3); Bilirubin,Total 0.3 mg/dL (0.0-1.0); Calcium 9.3 mg/dl (8.6-10.4); Chloride 99 mmol/L (96-108); Globulin 3.5 gm/dL (2.2-3.7); Glucose 277 mg/dL (70-105); Lactate Dehydrogenase 249 U/L (94-250); Phosphorous 2.7 mg/dL (2.7-4.5); Triglycerides 66 mg/dl (<150); Uric Acid 3.3 mg/dL (2.5-8.0)
[2019-06-23 09:09] LABS: Blood Urea Nitrogen 29 mg/dl (8-23); Carbon Dioxide 27 mmol/L (22-30); Glomerular Filtration Rate 83
[2019-06-23 09:20] LABS: Band Neutrophils % 7 % (0-10); Lymphocytes % 6 % (15-49); Monocytes % (Manual) 5 % (1-12); Platelet Estimate NORMAL (NORMAL); RBC Morphology NORMAL (NORMAL); Segmented Neutrophils % 82 % (38-78)
--- NOTE | 2019-06-23 09:22 | XRay Report ---
HISTORY: Follow-up pneumonia, hypoxia FINDINGS: There is a persistent moderate size consolidating alveolar infiltrate in the right lower lobe. The smaller infiltrate seen behind the left heart border on the earlier study has improved. Diffuse interstitial lung disease is again seen throughout the mid and upper thorax on the right side. Trace amount of residual barium is still present in the right lung base. The heart size is normal. Feeding tube is placed in the fundus of the stomach. IMPRESSION: Persistent pneumonia in the right lower lobe with no change. Resolving smaller left lower lobe infiltrate Interpreted and Authenticated by: Kemar Delarosa 06/23/19
[2019-06-23] MEDS ORDERED: LACTOPEROXI/GLUC OXID/POT THIO 1 EACH GEL..EA. TOPICAL PRN (11:28)
--- NOTE | 2019-06-23 13:31 | Death Note ---
Discharge Sum: Prov - Provider Patient information: Note initiated : 06/23/19 at 1:29 pm Service Date, if different from initiated Date: [] Patient: Elisha Alfaro 79 y/o F admitted on 06/20/19 for Frequent falls. Chief Complaint: [] Primary care physician: Osbaldo Aguilar Consults: 06/20/19 Consult to Physician [CONS] Stat Comment: Consulting Provider: William Lewis Reason For Exam: Physician to Consult Discharge Sum: Summary - Date and Time Date of admission: 06/20/19 15:35 Date of : 06/23/19 Time of : 12:30 - Summary Details: Ms. Alfaro is a 79 year old F Presents the ED with generalized weakness falling pelvic pain. Patient has been seen in the ED multiple times since being diagnosed with a pelvic fracture. 04/26 she presented with pelvic hip pain with no obvious trauma was found to have a hairline fracture of the left pubic ramus 05/06 presented back for some pain and noted had a hematoma at the fracture site 05/16 presented back for fall weakness and was found to have influenza 06/14 presented with swallowing difficulty and was evaluated for stroke which was negative work-up. Barium swallow which had some positive findings and she was scheduled to have a follow-up barium swallow with speech therapy this coming week. 06/19 presented for weakness swallowing issues and diagnosed with UTI Now presents today again because of weakness and she fell again this morning. She is does not feel safe at home family is concerned with her as well feel she needs to be in a rehab facility. She is afebrile laboratories unremarkable. This x-ray shows some interstitial findings, I suspect this to be related to probably a pneumonitis from aspirati on, she has no respiratory symptoms otherwise and does not appear to have pneumonia. Regarding her swallowing she says is been going on for couple several weeks and the it is most noticeable solids she is mostly able to tolerate a liquid diet although occasionally will show cough up water through her nose. She tolerated a boost drink this morning and coffee. She also reports that she feels like food gets stuck in her throat after she initiates a swallow. She denies any pyrosis. She denies any coughing other than when she is having the coughing from swallowing food or when she is trying to clear her throat of phlegm. Chest pain fevers or chills, denying shortness of breath. 06/21 Seemed to have some aspiration with the number of pills last night and seemed more hoarse after the event better this morning. NG tube last night. Do bedside swallow eval and see how she does with mildly thickened liquids as she was doing well with nutritional shakes before. Speech therapy to see tomorrow. She has a weak cough and an occasional cough mostly to try to cough up phlegm. She has some shortness of breath that is improved from yesterday. 06/22 To go to sleep last night. Little anxious. Was just given her home benzodiazepine. Speech therapy evaluation today. Mild left groin pain where the pelvic fracture is. 06/23 Called by house staff early in the morning regarding deterioration in patient. Nursing noted pulse oximetry alarm and went and found patient de-satting with reports that she was very lethargic and hypoxic and lung auscultation was rhonchorous. Placed on nonrebreather with improvement in sats. ABG shows respiratory acidosis with 7.23/71/80. Did start Mestinon earlier today after discussion with neurology. When family arrived during the event I was eventually able to sit down and visit with them - they reported to me how surprised they were when they saw her at dinnertime as she seemed to have shown moderate to significant improvement in her symptoms, including much improvement in the droopiness of her eye. Although nursing shift summary notes do not note improvements. I suspect that she aspirated, likely on her secretions. As the chest x-ray obtain is evidence of that as well. I discussed with them the disease specific nature of this respiratory event associated with myasthenia gravis. The patient is a DO NOT RESUSCITATE. I broached the idea of going against the patient's wishes in this specific scenario and placing her on mechanical ventilation. I discussed that this could potentially get her through this current decline. I also mentioned that she could end up requiring a tracheostomy. After discussion with the 3 family members it was felt that it was best to honor her wishes and to avoid mechanical ventilation. To continue BiPAP and if she declined, then we were to transition her to comfort care only. Patient was placed on BiPAP and transition to the ICU. *Around 9am she had another episode where she went hypoxic even on the BiPAP. She is placed on bag valve mask and suction with unimpressive amounts suctioned. Were able to increase her oxygenation appropriately. Placed in nasotracheal tube in and available place her back on BiPAP. Family present. After several more family discussions it was decided to transition the patient to comfort care. Patient was made comfort care only and at 1230 hours A: *Hypoxic/Hypercapnic Resp Failure: 2/2 aspiration *Dysphagia: failed barium swallow test with ST. Concern that this may be a neuromuscular problem such as Myasthenia Gravis -Barium swallow from [facility] (06/16/2019) reveals normal esophagus and her dysphagia was felt to be more oropharyngeal with swallow initiation, there was concern potential aspiration. Recommendation was for modified swallow eval with ST. *?Myasthenia Gravis: symptoms significant oropharyngeal decompensation along with hoarseness/aphonia and eyelid drop on right -MRI/CT brain negative -seemed to have a response to mestinon per family when they visited her for dinner on 06/22 *Aspiration pneumonitis/PNA: *Recent pelvic fracture: on 04/26 and likely reinjured it with the fall [employer]. *Generalized weakness/falls/debility: *UTI recent diagnosis: repeat UA unremarkable, *DM: *HTN: *Anxiety/depression: *Hypothyroidism: - Additional Data Attending physician: William Lewis
[2019-06-23] MEDS ORDERED: MELATONIN 3 MG TABLET PO SCH (21:00)
[2019-06-26] MEDS ORDERED: SCOPOLAMINE 1 PATCH PATCH TOPICAL SCH ×2 (10:00)
== END 2019-06-23 13:45 | disposition expired | DRG 189 ==
LOC: MEDSUR 10:43 → ED 10:43 → OBSVTOIN 15:35 → MEDSUR 15:45 → ICU 06-23 04:00
PROVIDERS: ADMIT Internal Medicine; ATTEND Internal Medicine